=== PATIENT | male | born 1950 | race Caucasian/White ===

== ENCOUNTER → 2019-03-07 12:08 | Outpatient (CLI) | payer MEDICARE, SELFPAY ==
--- NOTE | 2019-03-07 | DI.RAD.S_ITS ---
PROCEDURE: XR HIP W PEL IF DONE LT 2V INDICATIONS: LEG/HIP PAIN,OTHER DIORDER OF BONE TECHNIQUE: 2 views of the hip were acquired. COMPARISON: None. FINDINGS: Bones: No fractures or dislocations. No suspicious bony lesions. The visualized pelvic ring appears intact. Mild hip joint osteoarthritis is present, symmetric bilaterally. Soft tissues: No suspicious soft tissue calcifications or masses. IMPRESSION: Mild symmetric bilateral hip joint osteoarthritis, without evidence of trauma. Dictated by: Ole Gomez M.D. on 03/07/2019 at 13:01 Approved by: Ole Gomez M.D. on 03/07/2019 at 13:01
--- NOTE | 2019-03-07 | DI.RAD.S_ITS ---
PROCEDURE: XR TIBIA FUBULA RT 2V INDICATIONS: LEG/HIP PAIN,OTHER DIORDER OF BONE TECHNIQUE: 2 views of the tibia and fibula were acquired. COMPARISON: None. FINDINGS: Bones: No fractures or dislocations. No suspicious bony lesions. Prior fixation of lateral and medial malleolar fractures on the right ankle joint level is noted. Soft tissues: No suspicious soft tissue calcifications or masses. IMPRESSION: Long-standing malleolar fracture fixation both medially and laterally at the right ankle is noted and a definite source of new pain is not seen. There appears to be significant degenerative osteoarthritis, however, at the tibiotalar joint partially visualized. Followup ankle plain films may be warranted. Dictated by: Ole Gomez M.D. on 03/07/2019 at 13:01 Approved by: Ole Gomez M.D. on 03/07/2019 at 13:03
== END ==
PROVIDERS: PCP Family Medicine; Visit Provider Family Medicine
DX: M79.604 Pain in right leg (principal); M25.552 Pain in left hip; M16.0 Bilateral primary osteoarthritis of hip; M19.071 Primary osteoarthritis, right ankle and foot; M85.88 Other specified disorders of bone density and structure, other site; Z87.891 Personal history of nicotine dependence
CPT/HCPCS: 73502; 73590; 77080